=== PATIENT | male | born 1945 | race Caucasian/White ===

== ENCOUNTER 2020-09-21 03:58 | Day surgery (SDC) | payer MEDICARE ==
[~2020-09-21 03:58] MED LIST: ASCO500; ASCO500 PO; ASPI81CH PO; ASPI81EC PO; ATOR10 PO; ATOR40TA PO; Amlodipine Besyl5 MG PO; CLOP75 PO; FERR325 PO; FURO40 PO; IRON150C; LISI20 PO; LISINOPRIL-? DOSE; METO50 PO; NITR.4SL SL; PANT40 PO
== END 2020-09-21 23:50 | disposition home or self-care (01) ==
LOC: WOUND 03:58
DX: L97.919 Non-pressure chronic ulcer of unspecified part of right lower leg with unspecified severity (principal); L97.929 Non-pressure chronic ulcer of unspecified part of left lower leg with unspecified severity; I87.2 Venous insufficiency (chronic) (peripheral); I73.9 Peripheral vascular disease, unspecified
CPT/HCPCS: G0463

== ENCOUNTER 2020-10-01 11:56 | Inpatient (IN) | payer MEDICARE ==
[~2020-10-01] VITALS: Ht 170.2 cm; Wt 141.5 kg
[2020-10-01 12:58] LABS: Source, Urine Clean Catch
[2020-10-01 13:10] LABS: Appearance, Urine Clear (Clear); Blood, Urine 2+ (Neg); Color, Urine Yellow (P-Yellow); Glucose Qualitative, Urine Neg (Neg); Ketones, Urine Neg (Neg); Leukocyte Esterase, Urine Neg (Neg); Nitrite, Urine Neg (Neg); Protein, Urine 2+ (Neg); Urobilinogen, Urine NORM (Normal)
[2020-10-01 13:20] LABS: BASOPHILS ABSOLUTE AUTO 0.09 K/mm3 (0.00-0.23); BASOPHILS PERCENT AUTO 1 % (0-2); EOSINOPHILS ABSOLUTE AUTO 0.24 K/mm3 (0.00-0.68); EOSINOPHILS PERCENT AUTO 2 % (0-6); Hematocrit 37.7 % (37.0-53.0); Hemoglobin 12.2 g/dL (13.5-17.5); IMMATURE GRAN PERCENT AUTO 1 % (0-1); LYMPHOCYTES ABSOLUTE AUTO 1.14 K/mm3 (0.84-5.20); LYMPHOCYTES PERCENT AUTO 8 % (21-46); MONOCYTES ABSOLUTE AUTO 1.59 K/mm3 (0.16-1.47); MONOCYTES PERCENT AUTO 11 % (4-13); Mean Corpuscular HGB 30.7 pg (26.0-34.0); Mean Corpuscular HGB Conc 32.4 g/dL (31.5-36.5); Mean Corpuscular Volume 95 fL (80-100); NEUTROPHILS PERCENT AUTO 78 % (41-73); RDW Coefficient Variation 15.5 % (11.7-14.2); RDW Standard Deviation 53.1 fL (35.1-46.3); Red Blood Cell Count 3.98 M/mm3 (4.30-5.90); White Blood Cell Count 14.36 K/mm3 (4.00-11.30)
[2020-10-01 13:21] LABS: Mean Platelet Volume 10.5 fL (9.1-12.4)
[2020-10-01 13:26] LABS: Albumin, Blood 3.4 g/dL (3.4-5.0); Albumin/Globulin Ratio 0.8 (0.8-1.8); Bilirubin, Total 0.4 mg/dL (0.1-1.0); Bun/Creatinine Ratio 15.3 (12.0-20.0); Calcium, Blood 8.5 mg/dL (8.5-10.1); Creatinine, Blood 3.72 mg/dL (0.60-1.20); Globulin, Blood 4.2 g/dL (2.2-4.0); Potassium, Blood 4.9 mmol/L (3.5-5.5); Total Protein, Blood 7.6 g/dL (6.4-8.2)
[2020-10-01 13:30] LABS: Bacteria Few /hpf; Red Blood Cells, Urine 0-2 /hpf (0-2); Squamous Epithelial Cells Few /hpf (Few)
[2020-10-01 13:45] LABS: Platelet Count 381 K/mm3 (150-400)
[2020-10-01] MEDS ORDERED: SULFAMETHOXAZO1 EAC1 PO (16:28)
[2020-10-01] MEDS ORDERED: SPIRONOLACTONE25 MG PO (16:28)
[2020-10-01] MEDS ORDERED: HYDROCODONE-AC1 EA13 PO (16:29)
[2020-10-01] MEDS ORDERED: FUROSEMIDE20 MG PO (16:29)
[2020-10-01 17:18] LABS: Magnesium, Blood 2.1 mg/dL (1.6-2.4); Phosphorus, Blood 4.2 mg/dL (2.5-4.9)
[2020-10-01] MEDS ORDERED: METF500 PO ×2 (22:54)
--- NOTE | 2020-10-01 23:47 | NUR ---
2121 PT ARRIVED TO ROOM FROM ER IN STABLE CONDITION. REPORTS PAIN IN LEGS, WILL GIVE PAIN MEDS AND EVAL FOR EFFECT. WOUNDS TO LE'S, PHOTOS DONE, DRESSINGS CHANGED. BS WAS 102. REPORTS SOB THAT INCREASES WITH EXERTION, ON RA AT 95%. NO OTHER APPARENT SIGNS OF DISTRESS. CALL LIGHT IS IN REACH.
--- NOTE | 2020-10-02 00:41 | NUR ---
10/01/20 2330 PT LYING IN BED, AWAKE, NO APPARENT SIGNS OF DISTRESS. CALL LIGHT IS IN REACH. DENIES NEED FOR ANYTHING ELSE AT THIS TIME.
--- NOTE | 2020-10-02 03:03 | NUR ---
0200 PT LYING IN BED, EYES CLOSED, APPEARS TO BE RESTING. BREATHING IS EVEN, UNLABORED. NO APPARENT SIGNS OF DISTRESS. CALL LIGHT IS IN REACH.
--- NOTE | 2020-10-02 05:23 | NUR ---
0400 PT LYING IN BED, EYES CLOSED, WAKES EASILY TO VERBAL STIMULI. NO APPARENT SIGNS OF DISTRESS. CALL LIGHT IS IN REACH.
--- NOTE | 2020-10-02 05:24 | NUR ---
PT IS AAO X 4, ON RA. BS WAS 102. PT HAS CHRONIC CELLULITIS ON LE'S. PHOTOS DONE AND NEW DRESSINGS PLACED.
--- NOTE | 2020-10-02 05:26 | NUR ---
PT LYING IN BED, EYES CLOSED, APPEARS TO BE RESTING. BREATHING IS EVEN, UNLABORED. NO APPARENT SIGNS OF DISTRESS. CALL LIGHT IS IN REACH. NO OTHER CHANGES THIS SHIFT.
[2020-10-02 06:02] LABS: Calcium, Blood 7.7 mg/dL (8.5-10.1); Creatinine, Blood 4.29 mg/dL (0.60-1.20); Potassium, Blood 4.5 mmol/L (3.5-5.5)
[2020-10-02 16:00] LABS: Source, Urine Catheter
[2020-10-02 16:11] LABS: Appearance, Urine Clear (Clear); Blood, Urine 2+ (Neg); Color, Urine Yellow (P-Yellow); Glucose Qualitative, Urine Neg (Neg); Ketones, Urine Neg (Neg); Leukocyte Esterase, Urine Neg (Neg); Nitrite, Urine Neg (Neg); Protein, Urine 1+ (Neg); Urobilinogen, Urine NORM (Normal)
[2020-10-02 16:31] LABS: Bilirubin, Urine 1+ (Neg)
[2020-10-02 16:32] LABS: Bacteria Mod /hpf
[2020-10-02 16:33] LABS: Squamous Epithelial Cells Few /hpf (Few)
--- NOTE | 2020-10-02 18:26 | NUR ---
SHIFT SUMMARY PT STOOD AT SIDE OF BED THIS AFTERNOON AND REPORTED SIGNIFICANT INCREASE IN PAIN TO LEGS. MEDICATED FOR PAIN. DRESSING INTACT TO BOTH LEGS. NO OBVIOUS STRIKE THROUGH DRAINAGE NOTED. GETS SOB WITH ACTIVITY. PINON PLACED THIS AFTENOON AFTER LEAD MASON TENDER REPORTED 375 IN BLADDER AND PT ONLY URINATING A DRIBBLE FOR POST VOID CHECK. DID VOID IN URINAL ABOUT 100ML APPROX [address] ÁLVAREZ INFORMED AND HE REQUESTED CATHETER PLACEMENT. VISITOR IN THIS AFTERNOON. HAS BEEN IN [facility].
--- NOTE | 2020-10-03 04:59 | NUR ---
SHIFT SUMMARY PT HAS SLEPT MOST OF THE NIGHT, HE HAS DENIED NEEDS T/O THE SHIFT. IVF INFUSED ORDERED, PINON IN PLACE PATENT AND DRAINING. VITALS ARE STABLE. NO ACUTE CHANGES OVERNIGHT. PT PLESANT AND COOPERATIVE WITH CARE. BED IN LOWEST POSITION, CALL LIGHT WITHIN REACH.
[2020-10-03 05:52] LABS: BASOPHILS ABSOLUTE AUTO 0.05 K/mm3 (0.00-0.23); BASOPHILS PERCENT AUTO 1 % (0-2); EOSINOPHILS ABSOLUTE AUTO 0.15 K/mm3 (0.00-0.68); EOSINOPHILS PERCENT AUTO 2 % (0-6); Hematocrit 33.3 % (37.0-53.0); Hemoglobin 10.7 g/dL (13.5-17.5); IMMATURE GRAN ABSOLUTE AUTO 0.03 K/mm3 (0.00-0.10); IMMATURE GRAN PERCENT AUTO 0 % (0-1); LYMPHOCYTES ABSOLUTE AUTO 0.73 K/mm3 (0.84-5.20); LYMPHOCYTES PERCENT AUTO 10 % (21-46); MONOCYTES ABSOLUTE AUTO 1.07 K/mm3 (0.16-1.47); MONOCYTES PERCENT AUTO 14 % (4-13); Mean Corpuscular HGB 30.7 pg (26.0-34.0); Mean Corpuscular HGB Conc 32.1 g/dL (31.5-36.5); Mean Corpuscular Volume 96 fL (80-100); Mean Platelet Volume 9.9 fL (9.1-12.4); NEUTROPHILS ABSOLUTE AUTO 5.56 K/mm3 (1.96-9.15); NEUTROPHILS PERCENT AUTO 73 % (41-73); Platelet Count 271 K/mm3 (150-400); RDW Coefficient Variation 15.6 % (11.7-14.2); RDW Standard Deviation 54.4 fL (35.1-46.3); Red Blood Cell Count 3.48 M/mm3 (4.30-5.90); White Blood Cell Count 7.59 K/mm3 (4.00-11.30)
[2020-10-03 06:12] LABS: Albumin, Blood 2.7 g/dL (3.4-5.0); Anion Gap 8 mmol/L (6-16); Blood Urea Nitrogen 57 mg/dL (8-24); Bun/Creatinine Ratio 19.4 (12.0-20.0); CO2, Blood 22 mmol/L (21-32); Calcium, Blood 7.8 mg/dL (8.5-10.1); Chloride, Blood 107 mmol/L (98-108); Creatinine, Blood 2.94 mg/dL (0.60-1.20); Glomerular Filtration Rate 21 (60-); Glucose, Blood 128 mg/dL (70-99); Magnesium, Blood 2.2 mg/dL (1.6-2.4); Phosphorus, Blood 3.7 mg/dL (2.5-4.9); Potassium, Blood 3.8 mmol/L (3.5-5.5); Sodium, Blood 137 mmol/L (136-145)
--- NOTE | 2020-10-03 11:54 | NUR ---
ALERT. ORIENTED. MEDICATED FOR PAIN TO BLE POST DRESSING CHANGE THIS A.M. PLEASANT. UNLABORED RESPIRATIONS.IV INFUSING PER ORDERS. PINON DRAINING CLEAR YELLOW URINE. NO ACUTE CHANGES AT THIS TIME. WCTM
--- NOTE | 2020-10-03 17:23 | NUR ---
PER DR.ABRIO OCHOA TO ORDER P.T. AND O.T. EVAL.
--- NOTE | 2020-10-03 17:59 | NUR ---
ALERT. ORIENTED. NO OBVIOUS DRAINAGE FROM DRESSINGS. P.T./O.T. ORDERED FOR EVAL. PATIENT PLEASANT. ABLE TO MAKE HIS NEEDS KNOWN. PINON TO GRAVITY DRAINING CLEAR YELLOW URINE. WCTM
--- NOTE | 2020-10-03 18:08 | NUR ---
WARMED PRUNE JUICE, APPLE JUICE AND MELTED PAT BUTTER GIVEN.
--- NOTE | 2020-10-03 20:38 | NUR ---
XIAO R GUERO SITE WNL PATENT
--- NOTE | 2020-10-03 22:32 | NUR ---
R AC/FA AREA 20 G SITE WNL AND PATENT
--- NOTE | 2020-10-04 01:03 | NUR ---
10/03/202035 PT LYING IN BED, WOUND ON LE'S WITH DRESSINGS THAT ARE ABOUT 50% SATURATED. WILL CHANGE DRESSINGS. PT REPORTS PAIN IN LEGS, GAVE PAIN MEDS, WILL EVAL FOR EFFECT. PINON WITH YELLOW CLEAR URINE. NO OTHER APPARENT SIGNS OF DISTRESS. CALL LIGHT IS IN REACH.
--- NOTE | 2020-10-04 02:18 | NUR ---
10/03/202199 CHANGED DRESSING ON PT'S LEGS, PT TOLERATED WELL. NO APPARENT SIGNS OF DISTRESS. DENIES NEED FOR ANYTHING AT THIS TIME. CALL LIGHT IS IN REACH.
--- NOTE | 2020-10-04 02:19 | NUR ---
PT LYING IN BED, EYES CLOSED, APPEARS TO BE RESTING. BREATHING IS EVEN, UNLABORED. NO APPARENT SIGNS OF DISTRESS. CALL LIGHT IS IN REACH.
--- NOTE | 2020-10-04 02:19 | NUR ---
0000 PT LYING IN BED, EYES CLOSED, APPEARS TO BE RESTING. BREATHING IS EVEN, UNLABORED. NO APPARENT SIGNS OF DISTRESS. CALL LIGHT IS IN REACH.
[2020-10-04 05:48] LABS: Hematocrit 35.7 % (37.0-53.0); Hemoglobin 11.3 g/dL (13.5-17.5)
--- NOTE | 2020-10-04 06:12 | NUR ---
0400 PT LYING IN BED, EYES CLOSED, APPEARS TO BE RESTING. WAKES EASILY TO VERBAL STIMULI. NO APPARENT SIGNS OF DISTRESS. CALL LIGHT IS IN REACH. PT DENIED NEED FOR ANYTHING AT THIS TIME.
[2020-10-04 06:13] LABS: Albumin, Blood 2.5 g/dL (3.4-5.0); Anion Gap 7 mmol/L (6-16); Blood Urea Nitrogen 45 mg/dL (8-24); Bun/Creatinine Ratio 28.1 (12.0-20.0); CO2, Blood 23 mmol/L (21-32); Calcium, Blood 8.3 mg/dL (8.5-10.1); Chloride, Blood 109 mmol/L (98-108); Glomerular Filtration Rate 42 (60-); Glucose, Blood 125 mg/dL (70-99); Magnesium, Blood 2.2 mg/dL (1.6-2.4); Phosphorus, Blood 2.9 mg/dL (2.5-4.9); Potassium, Blood 4.3 mmol/L (3.5-5.5); Sodium, Blood 139 mmol/L (136-145)
--- NOTE | 2020-10-04 06:13 | NUR ---
PT IS AAO X 4, ON RA AT 94%. PT REPORTS SOB THAT INCREASES WITH EXERTION. PT REPORTS LEG PAIN, GOT NORCO AT HS. WOUNDS ON LE'S, DRESSINGS WERE CHANGED. PINON WITH CLEAR YELLOW URINE.
--- NOTE | 2020-10-04 06:14 | NUR ---
PT LYING IN BED, EYES CLOSED, APPEARS TO BE RESING. BREATHING IS EVEN, UNLABORED. NO APPARENT SIGNS OF DISTRESS. CALL LIGHT IS IN REACH. NO OTHER CHANGES THIS SHIFT.
--- NOTE | 2020-10-04 15:18 | NUR ---
SHIFT SUMMARY PT IS A&O, PLEASANT AND CO-OP. PINON CATH; PATENT AND DRAINING CL YELLOW. PT REPORTED PINON PLACED FOR RETENTION D/T BEING UNABLE TO VOID. BLE CHRONIC CELLULITIS; DRSG'S CHANGED THIS AM ON NOC SHIFT, PER SHIFT REPORT. PT SCHEDULED FOR DRSG CHANGES ON TUESDAYS AT OUTPT WOUND CLINIC. PT REPORTS PAIN IN BOTH LEGS D/T CELLULITIS, BUT HAS CONTINUED TO DECLINE PAIN MEDICATION. PT STATED THAT HE TRIES TO GET BY WITHOUT IT AND WILL LET US KNOW IF PAIN BECOMES BAD ENOUGH. PT ABLE TO AMBULATE TO [facility] SEVERAL TIMES TODAY; 1P SBA USING FWW. PT ABLE TO WORK WITH PT/OT WELL. PT RECOMMENDED TO GO TO SNF. PG PLACED TO MERT BY JULIOG RN FOR 7 MORE DAYS OF ABX OUTPT AT D/C. BED UNAVAILABLE UNTIL TOMORROW. PT UPDATED ON PLAN OF CARE. CALL LT IN REACH.
--- NOTE | 2020-10-05 04:51 | NUR ---
Shift Summary No acute events overnight. Patient slept well with minimal interruptions. Booker patent and draining to gravity. New stat lock placed. WCTM.
[2020-10-05 05:24] LABS: Hemoglobin 11.1 g/dL (13.5-17.5)
[2020-10-05 06:07] LABS: Albumin, Blood 2.6 g/dL (3.4-5.0); Anion Gap 6 mmol/L (6-16); Blood Urea Nitrogen 37 mg/dL (8-24); Bun/Creatinine Ratio 28.9 (12.0-20.0); CO2, Blood 27 mmol/L (21-32); Calcium, Blood 8.3 mg/dL (8.5-10.1); Chloride, Blood 107 mmol/L (98-108); Creatinine, Blood 1.28 mg/dL (0.60-1.20); Glomerular Filtration Rate 55 (60-); Glucose, Blood 124 mg/dL (70-99); Magnesium, Blood 1.9 mg/dL (1.6-2.4); Phosphorus, Blood 3.3 mg/dL (2.5-4.9); Potassium, Blood 3.9 mmol/L (3.5-5.5); Sodium, Blood 140 mmol/L (136-145)
[2020-10-05] MEDS ORDERED: BISA10S PR (12:24)
[2020-10-05] MEDS ORDERED: CEFTRIAXONE1 GM IV (12:24)
[2020-10-05] MEDS ORDERED: DOCU100 PO (12:24)
[2020-10-05] MEDS ORDERED: EUTHYROX25 MCG PO (12:25)
[2020-10-05] MEDS ORDERED: SENN187 PO (12:25)
[2020-10-05] MEDS ORDERED: BUME2 PO (12:25)
[2020-10-05] MEDS ORDERED: VISBIOME 112.51 EACH PO (12:25)
[2020-10-05 14:11] LABS: SARS-Cov-2 (COVID-19) PCR, MMC NEGATIVE (NEGATIVE)
--- NOTE | 2020-10-05 16:14 | NUR ---
SHIFT SUMMARY PT HAS CONTINUED TO IMPROVE, WORKING WITH PT/OT EACH DAY. PT UP TO SHOWER THIS AM; 1P ASSIST USING FWW. DRSG'S TO BLE'S REMOVED BY SOAKING WITH WOUND ADMINISTRATIVE ANALYST. WOUNDS ALLOWED TO DRY AND NEW DRSG'S PLACED, PER WOUND CARE ORDERS. PT TO D/C TO UV THIS AFTERNOON. BELONGINGS GATHERED. PT TO D/C VIA W/C TX. CALL LT IN REACH.
--- NOTE | 2020-10-05 16:18 | NUR ---
Pt states he is in a much better, much calmer state of mind now than he was over the weekend. He is planning to go to rehab prior to moving from his home. He realizes he requires a greater level of care, likely from here on out. He tells me he has 2 sons, one local and one in [facility], and planning to spend quality time with both his sons and their children.
--- NOTE | 2020-10-05 18:44 | NUR ---
PT PICKED UP BY TRANSPORT TO GO TO [facility]. REPORT CALLED TO SIMEON MELVIN.
== END 2020-10-05 17:18 | DRG 683 ==
LOC: ER 11:56 → MEDS 21:07
PROVIDERS: Internal Medicine; Internal Medicine Nephrology; Physician Assistant; ADMIT Hospitalist
DX: N17.0 Acute kidney failure with tubular necrosis (principal); Z68.42 Body mass index [BMI] 45.0-49.9, adult; I13.0 Hypertensive heart and chronic kidney disease with heart failure and stage 1 through stage 4 chronic kidney disease, or unspecified chronic kidney disease; E87.2 Acidosis; L03.116 Cellulitis of left lower limb; L03.115 Cellulitis of right lower limb; I25.10 Atherosclerotic heart disease of native coronary artery without angina pectoris; Z20.822 Contact with and (suspected) exposure to COVID-19; G47.33 Obstructive sleep apnea (adult) (pediatric); I50.9 Heart failure, unspecified; E66.01 Morbid (severe) obesity due to excess calories; N18.9 Chronic kidney disease, unspecified; I87.2 Venous insufficiency (chronic) (peripheral); E11.22 Type 2 diabetes mellitus with diabetic chronic kidney disease; E78.5 Hyperlipidemia, unspecified; E86.9 Volume depletion, unspecified; D63.1 Anemia in chronic kidney disease; T36.95XA Adverse effect of unspecified systemic antibiotic, initial encounter; T50.2X5A Adverse effect of carbonic-anhydrase inhibitors, benzothiadiazides and other diuretics, initial encounter; E87.70 Fluid overload, unspecified; Z91.011 Allergy to milk products; Z91.018 Allergy to other foods; I25.2 Old myocardial infarction; Z95.5 Presence of coronary angioplasty implant and graft; Z79.82 Long term (current) use of aspirin; Z79.899 Other long term (current) drug therapy; Z98.49 Cataract extraction status, unspecified eye; Z98.52 Vasectomy status
CPT/HCPCS: 36415; 76770; 80048; 80053; 80069; 81001; 82947; 83036; 83735; 83970; 84100; 84134; 84443; 85014; 85018; 85025; 87086; 93005; 93010; 97110; 97116; 97162; 97166; 97530; 97535; 99283; A9270; G0103; J0696; J1650; J7030; J7070; U0004

== ENCOUNTER 2020-10-12 02:36 | Day surgery (SDC) | payer MEDICARE ==
[~2020-10-12 02:36] MED LIST changes: +BISA10S PR; +BUME2 PO; +CEFTRIAXONE1 GM IV; +DOCU100 PO; +EUTHYROX25 MCG PO; +FUROSEMIDE20 MG PO; +HYDROCODONE-AC1 EA13 PO; +METF500 PO; +SENN187 PO; +SPIRONOLACTONE25 MG PO; +SULFAMETHOXAZO1 EAC1 PO; +VISBIOME 112.51 EACH PO
== END 2020-10-12 23:29 | disposition home or self-care (01) ==
LOC: WOUND 02:36
DX: L97.212 Non-pressure chronic ulcer of right calf with fat layer exposed (principal); L97.222 Non-pressure chronic ulcer of left calf with fat layer exposed; L97.829 Non-pressure chronic ulcer of other part of left lower leg with unspecified severity; L97.819 Non-pressure chronic ulcer of other part of right lower leg with unspecified severity; I87.2 Venous insufficiency (chronic) (peripheral); E66.09 Other obesity due to excess calories
CPT/HCPCS: G0463

== ENCOUNTER → 2020-11-13 | Outpatient (CLI) | payer MEDICARE ==
[2020-11-13 16:34] LABS: Creatinine Urine 86.8 mg/dL (27.00-270.00)
[2020-11-13 16:41] LABS: Microalbumin, Urine Quant. 8.56 mg/L (0.000-20.000)
== END | disposition home or self-care (01) ==
LOC: LAB SHORT 14:44 → LAB 14:44 → LAB FUT 11-12 10:50
PROVIDERS: Internal Medicine Nephrology
DX: N18.30 Chronic kidney disease, stage 3 unspecified (principal); D63.1 Anemia in chronic kidney disease; N25.81 Secondary hyperparathyroidism of renal origin; E55.9 Vitamin D deficiency, unspecified; E78.00 Pure hypercholesterolemia, unspecified; D51.8 Other vitamin B12 deficiency anemias; D52.8 Other folate deficiency anemias; D50.9 Iron deficiency anemia, unspecified; R76.9 Abnormal immunological finding in serum, unspecified; R94.5 Abnormal results of liver function studies; R94.6 Abnormal results of thyroid function studies
CPT/HCPCS: 81050; 82043; 82570; 84156

== ENCOUNTER → 2021-01-15 | Outpatient (CLI) | payer MEDICARE ==
[2021-01-17 16:01] LABS: Protein, Urine Quantitative 18.9 mg/dL (0.0-11.9)
[2021-01-17 16:05] LABS: Microalbumin, Urine Quant. 16.3 mg/L (0.000-20.000)
== END | disposition home or self-care (01) ==
LOC: LAB 10:19 → LAB SHORT 10:19 → LAB FUT 01-14 08:25
PROVIDERS: Internal Medicine Nephrology
DX: N18.30 Chronic kidney disease, stage 3 unspecified (principal); D63.1 Anemia in chronic kidney disease; N25.81 Secondary hyperparathyroidism of renal origin; E55.9 Vitamin D deficiency, unspecified; E78.00 Pure hypercholesterolemia, unspecified; R76.9 Abnormal immunological finding in serum, unspecified; R94.5 Abnormal results of liver function studies; R94.6 Abnormal results of thyroid function studies
CPT/HCPCS: 81050; 82043; 82570; 84156

== ENCOUNTER → 2022-06-07 | Outpatient (CLI) | payer MEDICARE, OTHER ==
[~2022-06-07] MED LIST changes: +ALLO100 PO; +FARXIGA10 MG PO; +HUMALOG KW100 UNIT/1 SC; +INSULANPEN SC; +POTA10T PO
[2022-06-07 19:43] LABS: Adenovirus F 40/41 Not Detected (NOT DETECT); Astrovirus Not Detected (NOT DETECT); Campylobacter Sp Not Detected (NOT DETECT); Cryptosporidium Not Detected (NOT DETECT); Cyclospora Cayetanensis Not Detected (NOT DETECT); E. Coli O157 Not Detected (NOT DETECT); Entamoeba Histolytica Not Detected (NOT DETECT); Enteroaggregative E. coli-EAEC Not Detected (NOT DETECT); Enteropathogenic E. coli-EPEC Not Detected (NOT DETECT); Enterotoxigenic E. coli-ETEC Not Detected (NOT DETECT); Giardia Lamblia Not Detected (NOT DETECT); Norovirus GI/GII Not Detected (NOT DETECT); Plesiomonas Shigelloides Not Detected (NOT DETECT); Rotavirus A Not Detected (NOT DETECT); Salmonella Sp Not Detected (NOT DETECT); Sapovirus Not Detected (NOT DETECT); Shiga Toxin-prod E. coli-STEC Not Detected (NOT DETECT); Shigella/Enteroin E. coli-EIEC Not Detected (NOT DETECT); Vibrio Cholerae Not Detected (NOT DETECT); Vibrio Sp Not Detected (NOT DETECT); Yersinia Enterocolitica Not Detected (NOT DETECT)
== END | disposition home or self-care (01) ==
LOC: LAB SHORT 11:13
PROVIDERS: Internal Medicine
DX: R19.7 Diarrhea, unspecified (principal)
CPT/HCPCS: 87507

== ENCOUNTER → 2022-09-29 | Outpatient (CLI) | payer MEDICARE, OTHER ==
[2022-09-29 16:55] LABS: BASOPHILS ABSOLUTE AUTO 0.07 K/mm3 (0.00-0.23); BASOPHILS PERCENT AUTO 1 % (0-2); EOSINOPHILS ABSOLUTE AUTO 0.01 K/mm3 (0.00-0.68); EOSINOPHILS PERCENT AUTO 0 % (0-6); Hematocrit 42.2 % (37.0-53.0); Hemoglobin 13.5 g/dL (13.5-17.5); IMMATURE GRAN ABSOLUTE AUTO 0.07 K/mm3 (0.00-0.10); IMMATURE GRAN PERCENT AUTO 1 % (0-1); LYMPHOCYTES ABSOLUTE AUTO 0.77 K/mm3 (0.84-5.20); LYMPHOCYTES PERCENT AUTO 5 % (21-46); MONOCYTES ABSOLUTE AUTO 1.65 K/mm3 (0.16-1.47); MONOCYTES PERCENT AUTO 11 % (4-13); Mean Corpuscular HGB 29.3 pg (26.0-34.0); Mean Corpuscular Volume 92 fL (80-100); Mean Platelet Volume 10.4 fL (9.1-12.4); NEUTROPHILS ABSOLUTE AUTO 12.13 K/mm3 (1.96-9.15); NEUTROPHILS PERCENT AUTO 83 % (41-73); Platelet Count 246 K/mm3 (150-400); RDW Coefficient Variation 14.3 % (11.7-14.2); RDW Standard Deviation 48.6 fL (35.1-46.3)
[2022-09-29 18:08] LABS: Albumin, Blood 3.5 g/dL (3.4-5.0); Albumin/Globulin Ratio 0.9 (0.8-1.8); Bilirubin, Total 0.8 mg/dL (0.1-1.0); Calcium, Blood 8.9 mg/dL (8.5-10.1); Creatinine, Blood 1.25 mg/dL (0.60-1.20); Globulin, Blood 3.9 g/dL (2.2-4.0); Potassium, Blood 4.2 mmol/L (3.5-5.5); Total Protein, Blood 7.4 g/dL (6.4-8.2)
== END | disposition home or self-care (01) ==
LOC: LAB SHORT 15:20 → LAB 15:20
PROVIDERS: Internal Medicine
DX: I12.9 Hypertensive chronic kidney disease with stage 1 through stage 4 chronic kidney disease, or unspecified chronic kidney disease (principal); N18.31 Chronic kidney disease, stage 3a; R10.30 Lower abdominal pain, unspecified
CPT/HCPCS: 80053; 85025; 85651

== ENCOUNTER → 2022-10-12 | Outpatient (CLI) | payer MEDICARE, OTHER ==
[2022-10-12 12:50] LABS: BASOPHILS ABSOLUTE AUTO 0.11 K/mm3 (0.00-0.23); BASOPHILS PERCENT AUTO 1 % (0-2); EOSINOPHILS PERCENT AUTO 3 % (0-6); Hematocrit 42.8 % (37.0-53.0); Hemoglobin 13.8 g/dL (13.5-17.5); IMMATURE GRAN ABSOLUTE AUTO 0.13 K/mm3 (0.00-0.10); IMMATURE GRAN PERCENT AUTO 1 % (0-1); LYMPHOCYTES ABSOLUTE AUTO 1.47 K/mm3 (0.84-5.20); LYMPHOCYTES PERCENT AUTO 12 % (21-46); MONOCYTES ABSOLUTE AUTO 1.12 K/mm3 (0.16-1.47); MONOCYTES PERCENT AUTO 9 % (4-13); Mean Corpuscular HGB Conc 32.2 g/dL (31.5-36.5); Mean Corpuscular Volume 90 fL (80-100); Mean Platelet Volume 10.3 fL (9.1-12.4); NEUTROPHILS ABSOLUTE AUTO 8.88 K/mm3 (1.96-9.15); NEUTROPHILS PERCENT AUTO 74 % (41-73); Platelet Count 330 K/mm3 (150-400); RDW Coefficient Variation 13.7 % (11.7-14.2); RDW Standard Deviation 45.8 fL (35.1-46.3); Red Blood Cell Count 4.76 M/mm3 (4.30-5.90); White Blood Cell Count 12.01 K/mm3 (4.00-11.30)
[2022-10-12 13:19] LABS: Albumin, Blood 3.5 g/dL (3.4-5.0); Albumin/Globulin Ratio 0.9 (0.8-1.8); Bilirubin, Total 0.4 mg/dL (0.1-1.0); Bun/Creatinine Ratio 19.1 (12.0-20.0); Calcium, Blood 9.4 mg/dL (8.5-10.1); Creatinine, Blood 1.57 mg/dL (0.60-1.20); Globulin, Blood 3.9 g/dL (2.2-4.0); Potassium, Blood 4.2 mmol/L (3.5-5.5); Total Protein, Blood 7.4 g/dL (6.4-8.2)
== END ==
LOC: LAB 08:00 → LAB SHORT 08:00
PROVIDERS: Internal Medicine
DX: K63.89 Other specified diseases of intestine (principal); R10.12 Left upper quadrant pain; R19.8 Other specified symptoms and signs involving the digestive system and abdomen
CPT/HCPCS: 80053; 83615; 85025; 85651